=== PATIENT | male | born 1990 | race Caucasian/White ===

== ENCOUNTER 2025-03-01 10:34 | Outpatient (AMB) | payer OTHER, SELFPAY ==
--- OUTSIDE RECORDS SUMMARY | 2025-02-26 23:59 | XMS_ITS | Continuity of Care Document ---
Author Organization [facility] Address [address] [place] [address]- Care Team Providers Care Tinning Equipment Tender Name Role Phone Teddy Arteaga NP Primary Care Physician [facility]counter [facility] Date[facility]): [facility] [address] [address]- Attending Physician: Teddy Arteaga NP Encounter Type: Pre Office Visit Allergies, Adverse Reactions, Alerts No Known Allergies Immunizations Given and Recorded Vaccine Date Status Refusal Reason influenza virus vaccine, inactivated 04/13/19 Chad rded Varicella Virus Vaccine 04/28/12 Recorded tetanus/diphtheria/pertussis, acel(Tdap) 04/28/12 Recorded Medications FLUoxetine 10 mg oral capsule 10 mg, 1, capsule, By Mouth, Daily, # 90 capsule, Refills 1, Tot. Refills 1, Maintenance, 01/02/25 1:52:00 PM EDT, Route to Pharmacy Electronically, [facility]/pharmacy #[id number], Partial fill upon patient request if the prescription is for a schedule II opioid drug., 179.7, cm, 01/02/25 13:25:00 EDT, Height Start Date: 01/02/25 Status: Ordered Quantity: 90.0 Unit: capsule Repeat number: 2 ketoconazole 2% topical shampoo 1 application, Topically, Once, PRN as needed, Shampoo 2%: Apply to affected area(s) of damp skin, lather, leave on 5 minutes, and rinse. usually one application is sufficient if not can do daily for3 days., # 120 mL, 0 Refills, Soft Stop, 01/02/25 2:03:00 PM EDT, [facility] #[id number], Partial fill upon patient request if the prescription is for a schedule II opioid drug., 1 application Topically Once,PRN:as needed,Instr:Shampoo 2%: Apply to affected area(s) of damp skin, lather, leave on 5 minutes, and rinse. usually one application is sufficient if not can do daily for 3 days., 179.7, cm, 01/02/25 13:25:00 EDT, Height Start Date: 01/02/25 Status: Ordered Quantity: 120.0 Unit: mL Repeat number: 1 Problem List Condition Confirmation Course Effective Dates Status Health St atus Informant Alcohol dependence Confirmed Active Generalized anxiety disorder Confirmed Active History of psoriasis Confirmed Active Injury of hand, right Confirmed 05/22/17 Active Reflux Confirmed Active Social History Social History Type Response Smoking Status Never (less than 100 in lifetime); Use: pt. smokes marijuana; Interested in cessation: No; Tobacco user in household: No entered on: 11/30/24 Sex Sex Representation Male (finding) Patient Care team information Care Team Personnel Name: Teddy Arteaga NP Position: [facility] PCO Associate Professional Member Role: PCP Address: [address] [place] [address] Telecom: Care Team Related Persons Name: PEDRO MONTERO Name: MODESTO PEREZ Insurance Providers Guarantor name: CAMPOS Health Plan Information #: 1 Payer: [employer] Payer Identifier: CAMPOS Member Number: [id number] Group Number: [id number] Subscriber Identifier: [id number] Relationship to Subscriber: self Coverage Type: Medicaid (Managed Care) Coverage Verification Date: CAMPOS Telecom: CAMPOS Address:
[2025-03-01 10:43] VITALS: BMI 21.7
--- NOTE | 2025-03-01 10:43 | MHC.OFFVIS ---
Vital Signs 03/01/25 10:43 Height 6 ft Weight 160 lb BMI 21.7 Intake Visit Reasons: FC- nondisplaced fx of proximal phalanx Intake Note: Sunny is a 34 year old right hand dominant male who is currently unemployed, presents today for a a fracture care visit for his left hand 5th digit s/p playing football DOI: ~02/05/25. Per Urgent Care note patient was playing football when he jammed the left 5th digit while attempting to catch the ball. He presented at the time of his urgent care visit with complaints of joint pain, swelling and bruising at the left proximal 5th phalanx. There was also localized edema to the left PIP, limited ROM and tenderness with palpation. States he was given a splint to use and referred to orthopedics. Franci states states he is limited in making a full close fist, has a dull ache in finger and weakness. Denies numbness, tingling or locking of any finger. Allergies No Known Allergies Allergy (Verified 03/01/25 10:47) HPI HPI FC- nondisplaced fx of proximal phalanx: Details: Sunny is a 34 year old right hand dominant man who presents for a left small finger proximal phalanx fracture, S/P football injury, DOI: 02/05/25. He jammed his finger while playing. He was given a finger splint to wear He complains of aching in his small finger, weakness, and limited ROM. He says he is not able to make a fully closed fist. He denies any numbness, tingling, locking, or catching. He is a smoker. 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 [facility] Social History (Updated 03/01/25 @ 10:47 by STEFFANY Santana) Current occupational status: unemployed Current occupation: rt hand Review of Systems Const All systems reviewed & are unremarkable except as noted in HPI and below Physical Exam Vital Signs: BMI result Body Mass Index 21.7 Const General: cooperative, healthy appearing and no acute distress Orientation/consciousness: patient oriented x3 HEENT Head: Yes normocephalic and Yes atraumatic Eyes EOM: EOMs intact bilaterally Resp Effort & Inspection: normal respiratory effort and able to speak in complete sentences Cardio Jugular venous distension: no JVD Skin General skin exam: turgor normal Rashes: no rashes Neuro General: patient oriented x3 Extrem Other: Evaluation of Left Upper Extremity: The patient is alert, oriented, and in no acute distress Neuro: Median, Ulnar, Radial nerves motor and sensory intact and sensation is normal to the tips of all digits Vascular: Cap refill brisk ROM: He can bring his fingers closed to a fist and back into extension, except for the small finger ~30-40 degrees flexion, limited by pain, & full extension at the small finger PIP joint No rotational mal-alignment Skin: No lacerations or abrasions. General: No Ecchymosis. No Erythema or evidence of infection. swelling over the distal aspect of the small finger proximal phalanx & PIP joint Mild tenderness over the fracture site Radiographs: 3 views of the left hand were taken and viewed by me today in clinic. They show a small finger fracture of the distal aspect of the proximal phalanx near the articular surface, with satisfactory fracture alignment. Psych Appearance: grossly normal Affect: normal affect Attitude: cooperative Office Procedures AMB Fracture Care Details: Fracture care 50214 Fracture Billing Code: Fracture Billing Code Assessment & Plan Assessment & Plan (1) Fracture of proximal phalanx of left little finger: Code(s): S62.617A - Displaced fracture of proximal phalanx of left little finger, initial encounter for closed fracture Category: Medical Plan Assessment & Plan: 1. Left small finger proximal phalanx fracture From a football injury, DOI: 02/05/25 I educated him about this condition I discussed operative and non-operative treatment options No intervention warranted at this time, and he is in agreement This was managed by the patient in a splint. He will continue to wear his splint with daily activity for the next 3 weeks. I discussed activity modification, he is to lift nothing heavier than a cellphone for the next 2 weeks. He should avoid any falls, impact activities, or sports for the next 6 weeks, as he is a smoker. He will work on ROM exercises at home, while in his splint. I explained the effects of smoking on wound/bone healing, and recommend they stop smoking prior to surgery & while healing. This includes vaping, Marijuana, and other Nicotine products including patches used to help quit. They expressed understanding. He will follow up in 3 weeks, with X-rays, 3V L hand If things look good, we will start advancing range of motion. Sports like hockey she would likely wait until late March Scribed for Elizabeth Gifford MD by Andrew Alicia, medical authorization specialist, on 03/01/25 at 10:55 AM, EST. Orders: Orders XR hand LT min 3V Today M79.642 - Pain in left hand Coding Level of Care Code New Pt Level 4 (96474) Diagnoses Fracture of proximal phalanx of left little finger S62.617A CPT Codes Fracture Care - Fracture Billing Code: Fracture Billing Code ([id number])
--- OUTSIDE RECORDS SUMMARY | 2025-03-01 11:22 | XMS_ITS | Clinical Summary ---
Author Organization [facility] Address [address] [place], [place] [address] Phone Care Team Providers Care Assistant Portfolio Manager Name Role Phone Pete Rowe MD Primary Care Provider [phone]- [phone] Allergies No known active allergies Medications No known medications Active Problems Problem Noted Date Diagnosed Date Pain of right clavicle 04/14/2018 Social History Tobacco Use Types Packs/Day Years Used Date Smoking Tobacco: Never Smokeless Tobacco: Never Alcohol Use Standard Drinks/Week Comments No 0 (1 standard drink = 0.6 oz pur e alcohol) Education Answer Date Recorded Are you interested in more education? Not on deneen e 11/14/2022 Are you concerned about learning? Not on file 11/14/2022 No 11/14/2022 No 11/14/2022 Digital Access Answer Date Recorded No 12/12/2022 No 12/12/2022 No 12/12/2022 Reliable internet access at home? Not on file 12/12/2022 Device with a working camera? Not on file Sex and Gender Information Value Date Recorded Sex Assigned at Male 03/23/2018 4:28 PM EDT Legal Sex Male 9:00 PM EDT Gender Identity Male 03/23/2018 4:28 PM EDT Sexual Orientation Not on file Last Filed Vital Signs Vital Sign Reading Time Taken Comments Blood Pressure 132/76 03/23/2018 4:27 PM EDT Pulse 97 03/23/2018 4:27 PM EDT Temperature 37 C (98.6 F) 03/23/2018 4:27 PM EDT Respiratory Rate 18 03/23/2018 4:27 PM EDT Oxygen Saturation 98% 03/23/2018 4:27 PM EDT Inhaled Oxygen Concentration - - Weight 68 kg (150 lb) 05/14/2018 10:44 AM EDT Height 180.3 cm (5' 11 ) 05/14/2018 10:44 AM EDT Body Mass Index 20.92 05/14/2018 10:44 AM EDT Plan of Treatment Health Maintenance Due Date Last Done Comments DEPRESSION SCREENING 2003 HEPATITIS C SCREENING 2009 HIV ONE-TIME SCREENING (18-6 5 YEARS) 2009 Adult Td,Tdap Booster 04/28/2022 04/28/2012 COVID-19 VACCINE ( - 2023-2 5 season) 2024 SMOKING STATUS SCREENING (On ce After 26 Yrs) Completed 05/14/2018 HEPATITIS A VACCINES Aged Out No long er eligible based on patient's age to complete this topic HIB VACCINES Aged Out No longer eligi ble based on patient's age to complete this topic MENINGOCOCCAL VACCINES (ACWY) Aged Out No longer eligible based on patient's age to complete this topic MENINGOCOCCAL VACCINES (B) Aged Out N o longer eligible based on patient's age to complete this topic PNEUMOCOCCAL VACCINES (0-49 years) Aged Out No longer eligible based on patient's age to complete this topic Medical Devices Not on file Insurance Expert Medical Navigation MCO Expert [employer] [place] [address] [place] [address] The Learning [facility]PARK[facility] The Learning LabPARKVIEW [facility] The Learning LabPARKVIEW [facility] MCO TechnoSpinCATSKILL REGIONAL MEDICAL CENTERO [email or web address].[email or web address] [facility] MCO TechnoSpinCATSKILL REGIONAL MEDICAL CENTERO [facility] MCO Care Teams Assistant Portfolio Manager Relationship Specialty Start Date End Date Pete Rowe MD [address] [place] [id number] PCP - General Internal Medicine 04/13/18 Additional Source Comments The information contained in this document represents components of the legal health record. It is not the complete legal health record.[facility]
== END 2025-03-01 11:27 | disposition home or self-care (01) ==
LOC: HO.HOS 10:34
PROVIDERS: Visit Provider Orthopaedic Surgery
DX: S62.617A Displaced fracture of proximal phalanx of left little finger, initial encounter for closed fracture (principal)
CPT/HCPCS: 26740; 99204

== ENCOUNTER → 2025-03-01 10:34 | Outpatient (BNVA) | payer OTHER, SELFPAY | PROVIDERS: Visit Provider Orthopaedic Surgery | DX: M79.642 Pain in left hand (principal); S62.617A Displaced fracture of proximal phalanx of left little finger, initial encounter for closed fracture | CPT/HCPCS: 26740; 99202 ==

== ENCOUNTER → 2025-03-01 10:36 | Outpatient (BNV) | payer OTHER, SELFPAY | PROVIDERS: Visit Provider Radiology Diagnostic Radiology | DX: S63.437A Traumatic rupture of volar plate of left little finger at metacarpophalangeal and interphalangeal joint, initial encounter (principal) | CPT/HCPCS: 73130 ==

== ENCOUNTER 2025-03-02 08:32 | Outpatient (REF) | payer OTHER, SELFPAY ==
--- NOTE | ~2025-03-02 | XR_ITS ---
EXAMINATION: XR HAND 3 OR MORE VIEWS LEFT HISTORY: M79.642 - Pain in left hand COMPARISON: There are no prior studies available for comparison. FINDINGS: Three views of the right hand are submitted. Osseous mineralization is normal. There is a linear osseous density at the volar aspect of the PIP joint of the 5th finger, consistent with an avulsion fracture fragment. The joint spaces are preserved. There is soft tissue swelling at the PIP joint of the 5th finger. XR/XR hand LT min 3V IMPRESSION: Avulsion fracture fragment at the volar aspect of the PIP joint of the 5th finger. Electronically signed by: Pete Valentine MD 03/01/2025 11:05 AM EDT
--- OUTSIDE RECORDS SUMMARY | 2025-03-03 08:45 | XMS_ITS | Clinical Summary ---
Author Organization [facility] Address [address] [place], [place] [id number] Phone Care Team Providers Care Engineer Intern Name Role Phone Pete Rowe MD Primary Care Provider +1- [phone] Allergies No known active allergies Medications No [...] topic Medical Devices Not on file Insurance [employer] M[employer] [place] [address] [place] [address] [facility] OneTagPREMI[facility] OneTagPREMIER [facility]ALTH MCO CanlifeLEWIS COUNTY GENERAL HOSPITALO HILLSBOROWolf Pyros PicturesPREMIER HEALTH MCO CanlifeLEWIS COUNTY GENERAL HOSPITALO [facility] MCO Care Teams Engineer Intern Relationship Specialty Start Date End Date Pete Rowe MD [address] [place] [id number] PCP - General Internal Medicine 04/13/18 Additional Source Comments The information contained in this document represents components of the legal health record. It is not the complete legal health record.[facility]
== END 2025-03-02 08:33 | disposition home or self-care (01) ==
LOC: HO.HOSX 08:32
PROVIDERS: Visit Provider Orthopaedic Surgery
DX: M79.642 Pain in left hand (principal)
CPT/HCPCS: 73130

== ENCOUNTER 2025-03-28 08:53 | Outpatient (REF) | payer OTHER, SELFPAY ==
--- NOTE | ~2025-03-28 | XR_ITS ---
EXAMINATION: XR HAND, LEFT CLINICAL INFORMATION: M79.642 - Pain in left hand COMPARISON: None available. TECHNIQUE: PA, lateral, and oblique views of the left hand and lateral view the fifth digit. FINDINGS: Lateral view of the fifth digit demonstrates small triangular shaped fragment anterior to the proximal phalanx head. There is also small cortical fragment dorsally on the oblique view. On the PA view, there is a faint cortical fragment on the ulnar side of the proximal phalanx head. There is soft tissue swelling around the PIP joint of the fifth digit. No other abnormalities are seen. XR/XR hand LT min 3V IMPRESSION: Avulsion fractures involving the fifth proximal phalanx head. Electronically signed by: Reji Loo MD 03/28/2025 01:33 PM EDT
--- OUTSIDE RECORDS SUMMARY | 2025-03-29 10:27 | XMS_ITS | Clinical Summary ---
Author Organization [facility] Address [address] [place], [place] [address] Phone Care Team Providers Care Dietician Name Role Phone Pete Rowe MD Primary Care Provider +1- [phone] Allergies No known active allergies Medications No [...] topic Medical Devices Not on file Insurance [employer] [place] [address] [employer] ESSENTIAL Stel[employer] EnergyCRYSTAL CLINIC ORTHOPEDIC CENTER MCO [address] ROADSEmerald City Beer CompanyCRYSTAL CLINIC ORTHOPEDIC CENTER MCO [address]SEmer[address] City Beer CompanyHEALTH MCO [employer] M[employer] M[employer] [facility] Care Teams Dietician Relationship Specialty Start Date End Date Pete Rowe MD [address] [place] [phone] [email or web address] PCP - General Internal Medicine 04/13/18 Additional Source Comments The information contained in this document represents components of the legal health record. It is not the complete legal health record.[facility]
== END 2025-03-28 08:54 | disposition home or self-care (01) ==
LOC: HO.HOSX 08:53
PROVIDERS: Visit Provider Orthopaedic Surgery
DX: S62.617A Displaced fracture of proximal phalanx of left little finger, initial encounter for closed fracture (principal); W21.01XA Struck by football, initial encounter
CPT/HCPCS: 73130; 99212

== ENCOUNTER 2025-03-28 13:20 | Outpatient (AMB) | payer OTHER, SELFPAY ==
--- NOTE | 2025-03-28 13:27 | A.OFFVIS_ITS ---
Vital Signs 03/28/25 13:28 Height 6 ft Weight 160 lb BMI 21.7 Intake Visit Reasons: OV- nondisplaced fx of proximal phalanx Intake Note: Sunny 34 yr old right hand dominant male presents today for his follow up visit for his left small finger proximal phalanx fracture from a football injury, DOI: 02/05/25. At his last visit, he was placed in a splint and was advise to avoid lifting more than 2 lbs, work on gentle ROM and try to quit smoking to have better and faster healing. X-rays updated in office. States he has improved on his small finger ROM however he still has swelling, soreness and tenderness. Allergies No Known Allergies Allergy (Verified 03/01/25 10:47) HPI HPI OV- nondisplaced fx of proximal phalanx: Details: Sunny is a 34 year old right hand dominant man who returns for his left small finger PIP proximal phalanx fracture, S/P football injury, DOI: 02/05/25. He jammed his finger while playing. He says he has improved his ROM but continues to have some swelling & soreness in his finger. He denies any numbness, tingling, locking, or catching. He is a smoker. 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 [facility] Social History Current occupational status: unemployed Current occupation: rt hand Physical Exam Vital Signs: BMI result Body Mass Index 21.7 Extrem Other: Evaluation of Left Upper Extremity: The patient is alert, oriented, and in no acute distress Neuro: Median, Ulnar, Radial nerves motor and sensory intact and sensation is normal to the tips of all digits Vascular: Cap refill brisk ROM: He can bring his fingers closed to a fist and back into extension, including the small finger The small finger PIP joint is somewhat swollen in comparison to his uninjured hand No rotational mal-alignment Resolved swelling over the distal aspect of the small finger proximal phalanx & PIP joint Minimal tenderness over the PIP joint Radiographs: 3 views of the left hand were taken and viewed by me today in clinic. They show a small finger fracture of the distal aspect of the proximal phalanx near the articular surface, with satisfactory fracture alignment. Assessment & Plan Assessment & Plan (1) Fracture of proximal phalanx of left little finger: Code(s): S62.617A - Displaced fracture of proximal phalanx of left little finger, initial encounter for closed fracture Category: Medical Plan Assessment & Plan: 1. Left small finger proximal phalanx fracture From a football injury, DOI: 02/05/25 I educated him about this condition I discussed operative and non-operative treatment options No intervention warranted at this time, and he is in agreement He will discontinue his splint at this time. He will Daniel-tape his ring & small fingers with daily activities for the next 6 weeks, particularly with sport activities I discussed activity modification, he is able to use his hand for lightweight activities and slowly increase as tolerated. He should avoid any falls, impact activities, or sports for the next 3 weeks, as he is a smoker. He is still not to play hockey for at least the next 3 weeks He will work on ROM exercises at home I explained the effects of smoking on wound/bone healing, and recommend they stop smoking prior to surgery & while healing. This includes vaping, Marijuana, and other Nicotine products including patches used to help quit. They expressed understanding. I discussed OT hand therapy with him, he would like to take time to see how he does on his own he can follow up prn. He may contact the clinic for a referral to OT hand therapy if he changes his mind and wants 1 Scribed for Elizabeth Gifford MD by Andrew Alicia, medical records auditor, on 03/28/25 at 2:00 PM, EST. Orders: Orders XR hand LT min 3V Today M79.642 - Pain in left hand Coding Level of Care Code Global (77014) Diagnoses Fracture of proximal phalanx of left little finger S62.617A
[2025-03-28 13:28] VITALS: BMI 21.7
--- OUTSIDE RECORDS SUMMARY | 2025-03-28 15:45 | XMS_ITS | Clinical Summary ---
Author Organization [facility] Address [address] [place], [place] [address] Phone Care Team Providers Care Hr Analyst Name Role Phone Pete Rowe MD Primary Care Provider +1- [phone] Allergies No known active allergies Medications No [...] YEARS) 2009 Adult Td,Tdap Booster 04/28/2022 04/28/2012 INFLUENZA VACCINE (#1) 2025 04/13/2019 COVID-19 VACCINE ( - 2023-2 5 season) 2025 SMOKING STATUS SCREENING (On ce After 26 [...] topic Medical Devices Not on file Insurance NOZA MCO NOZA [employer] ESSENTIAL Software ArtistryWEXNER MEDICAL CENTER MCO MOUNTAIN CENTERBusiness LabWEXNER MEDICAL CENTER MCO MOUNTAIN CENTERBusiness LabHEALTH MCO NOZA MCO NOZA MCO NOZA M[facility] MCO Care Teams Hr Analyst Relationship Specialty Start Date End Date Pete Rowe MD [address] [place] [phone] [email or web address] PCP - General Internal Medicine 04/13/18 Additional Source Comments The information contained in this document represents components of the legal health record. It is not the complete legal health record.[facility]
== END 2025-03-28 14:20 | disposition home or self-care (01) ==
LOC: HO.HOS 13:20
PROVIDERS: Visit Provider Orthopaedic Surgery
DX: S62.617A Displaced fracture of proximal phalanx of left little finger, initial encounter for closed fracture (principal)
CPT/HCPCS: 99024

== ENCOUNTER → 2025-03-28 13:21 | Outpatient (BNV) | payer OTHER, SELFPAY | PROVIDERS: Visit Provider Radiology Diagnostic Radiology | DX: S62.617A Displaced fracture of proximal phalanx of left little finger, initial encounter for closed fracture (principal) | CPT/HCPCS: 73130 ==